=== PATIENT | female | born 1950 | race African-American/Black ===

== ENCOUNTER → 2017-01-22 | Outpatient (CLI) | payer MEDICARE, OTHER ==
[2015-04-30 10:46] VITALS: BP 121/73
[~2017-01-22] MED LIST: CYAN10005 PO; CYCL10TA2 PO; FERR325T20 PO; HYDR-971 PO; HYDR25TA9 PO; LISI-334 PO; METF10002 PO; POTA20TA12 PO
--- NOTE | 2017-01-22 09:02 | KCIC ---
PROCEDURE MRI lumbar spine without contrast. HISTORY Low back pain, pain since September 2016, bilateral radiculopathy TECHNIQUE Multiplanar, multi sequential, non contrast MR imaging was performed of the lumbar spine. COMPARISON None FINDINGS Lumbar vertebral body stature and AP alignment are maintained. Conus terminates normally at L1. There is no significant marrow edema. Intervertebral disc spaces are overall preserved, mild disc desiccation L2-3. There is posterior annular tear L2-3. L2-3: There is negligible disc osteophyte complex and bulge. Spinal canal and neural foramina are adequate. There is mild facet hypertrophic change and buckling of the ligamentum flavum. L3-4: There is mild buckling of the ligamentum flavum and facet hypertrophic change. There is negligible disc osteophyte complex. Neural foramina and spinal canal are adequate. L4-5: There is mild to moderate facet degenerative change and mild buckling of the ligamentum flavum. Spinal canal and neural foramina are adequate. L5-S1: Spinal canal and neural foramina are adequate. There is moderate facet hypertrophic change. IMPRESSION 1. There is multilevel lumbar facet degenerative change. There is no significant lumbar spinal stenosis or neural foramina compromise. There is very minimal spondylosis. There is mild disc desiccation L2-3. Electronically signed by: Tanvir Franco MD (Jan 22, 2017 09:01:18)
== END | disposition home or self-care (01) ==
LOC: KCIC MRI 08:23
PROVIDERS: ATTEND Neurological Surgery
DX: M54.16 Radiculopathy, lumbar region (principal); M25.78 Osteophyte, vertebrae; M47.896 Other spondylosis, lumbar region; M51.36 Other intervertebral disc degeneration, lumbar region
CPT/HCPCS: 72148

== ENCOUNTER → 2017-02-04 | Outpatient (CLI) | payer OTHER, MEDICARE ==
[2015-04-30 10:46] VITALS: BP 121/73
[~2017-02-04] MED LIST changes: +IOHEXOL 180 MG/ML 10 ML VIAL. ONE; +methylPREDNISolone ACETATE 40 MG/ML VIAL. ONE; +methylPREDNISolone ACETATE 80 MG/ML VIAL. ONE
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
== END | disposition home or self-care (01) ==
LOC: PNCL 08:34
PROVIDERS: ATTEND Anesthesiology
DX: M51.16 Intervertebral disc disorders with radiculopathy, lumbar region (principal); M47.26 Other spondylosis with radiculopathy, lumbar region; M19.90 Unspecified osteoarthritis, unspecified site; I10 Essential (primary) hypertension; E11.9 Type 2 diabetes mellitus without complications; D64.9 Anemia, unspecified; Z90.49 Acquired absence of other specified parts of digestive tract
CPT/HCPCS: 62323; J1030; J1040

== ENCOUNTER → 2017-02-18 | Outpatient (CLI) | payer MEDICARE, OTHER ==
[2015-04-30 10:46] VITALS: BP 121/73
[~2017-02-18] MED LIST changes: -IOHEXOL 180 MG/ML 10 ML VIAL. ONE; +METF500T4 PO; +Magnesium Chloride PO; +PANT40TA5 PO; -methylPREDNISolone ACETATE 40 MG/ML VIAL. ONE; -methylPREDNISolone ACETATE 80 MG/ML VIAL. ONE
--- NOTE | 2017-02-18 14:48 | PAIN ---
DATE OF SERVICE: 02/18/2017 DIAGNOSES: Lumbar radiculopathy with lumbar degenerative disk disease and lumbar spondylosis. HISTORY OF PRESENT ILLNESS: The patient is a 66-year-old female who returns for followup status post lumbar epidural steroid injection x 1. The patient reports about 50% improvement, doing much better in the low back and right greater than left lower extremity pain. There is still some pain in the right hip and leg which is a crampy pain but doing much better. The patient reports she has been increasing her activities with greater ease and comfort and has been doing generally better. The patient does have a significant complaint today, however, of some chest pain which is a dull and heavy feeling radiating into her left neck, left jaw, and into her left arm with heaviness in her left arm as well. It has been going on for about 4 days. The patient reports she is not short of breath. She is not having any other symptoms or complaints. No diaphoresis or sweating but is having significant to heavy pain. She is having it on her visit today. The patient reports her back pain, however, is about a 4 on a scale of 10. It is as high as 6 with activity, standing and walking, doing much better, sleeping better at night. Main complaint, however, is the chest pain that she is having currently. PHYSICAL EXAMINATION: VITAL SIGNS: The patient's blood pressure is 141/79, pulse 98, respirations are 18, and temperature 98.1 degrees Fahrenheit. Height is 5 feet 8 inches, weight is 218 pounds. GENERAL: The patient is awake, alert, oriented, appropriate, very pleasant demeanor. HEENT: Head shows normocephalic, atraumatic. Extraocular movements are intact and symmetrical. Oral cavity, mucous membranes are moist and pink. Dentition is intact. NECK: Shows anterior throat supple without palpable lymphadenopathy noted. Swallow reflex is symmetrical. Neck shows full rotational motion of the cervical spine without difficulty. CHEST: Shows normal with inspection. Breath sounds are clear to auscultation bilaterally. HEART: Shows S1 and S2 clear. No murmurs are auscultated. ABDOMEN: Soft, nontender, and nondistended. BACK: The patient's back shows spine grossly in midline. Lumbar paraspinous muscle shows some mild tenderness with palpation in the lumbar distribution without radiation and only diffusely in the paraspinous musculature, mostly in the lower lumbar distribution. EXTREMITIES: Lower extremities show deep tendon reflexes at 1+/4 in the patellar tendons. Motor exam is strong with 5 out of 5 dorsiflexion and extension and equal bilaterally. PLAN: Options were discussed with the patient. At this time in light of the patient's acute heavy chest pain and radiating to the left arm, we will have her transferred to the Emergency Department immediately for evaluation and EKG. I spoke with the patient's primary care physician, Dr. Denny, also, and she agrees to have her sent to the Emergency Department to have her cardiac system evaluated. The patient will follow up after this is evaluated and it is safe to proceed. We will have her return for a second lumbar epidural steroid injection once her cardiac evaluation is completed and is available. MARKUS ENRIQUEZ MD DR: RELL/margo JOB#: [id number] / [id number]
== END | disposition home or self-care (01) ==
LOC: PNCL 08:54
PROVIDERS: ATTEND Anesthesiology
DX: M51.16 Intervertebral disc disorders with radiculopathy, lumbar region (principal); M47.896 Other spondylosis, lumbar region
CPT/HCPCS: 99212

== ENCOUNTER → 2017-02-23 | Outpatient (CLI) | payer MEDICARE, OTHER ==
[2017-02-19 15:15] VITALS: BP 109/70
[~2017-02-23] MED LIST changes: +IOHEXOL 180 MG/ML 10 ML VIAL. ONE; +methylPREDNISolone ACETATE 40 MG/ML VIAL. ONE; +methylPREDNISolone ACETATE 80 MG/ML VIAL. ONE
--- NOTE | 2017-02-23 10:32 | PAIN ---
DATE OF SERVICE: 02/23/2017 PROGRESS NOTE FOR PAIN CLINIC DIAGNOSES: Lumbar radiculopathy with lumbar degenerative disk disease, lumbar spondylosis. HISTORY OF PRESENT ILLNESS: The patient is a 66-year-old female, who returns for followup status post lumbar epidural steroid injection x 1. The patient is about 50% better with the last injection on her last visit; however 02/18/2017. She has had some chest pain and we had sent her to the ER. She was admitted overnight for observation with a normal EKG, normal echo and the pain resolved after a few days after leaving the hospital. The patient reports she is doing much better. She is scheduled for esophageal dilatation; however, in the near future with her newspaper photojournalist as this may have been the source of pain, but cardiac symptoms for ruled out and she is very happy about this. The patient reports still significant pain in the low back, worse on the left than the right, but across the low back, bilaterally is aching, sharp and dull, constant in activity, worse with standing and walking, anywhere from 5 to 7 on a scale of 10. Again, worse with activity. The patient reports no new motor or sensory deficits, no new bowel or bladder incontinence or other complaints. PHYSICAL EXAMINATION: VITAL SIGNS: The patient's blood pressure is 122/61, pulse 76, respirations are 20, temperature 98.2 degrees Fahrenheit. Weight is 217 pounds. GENERAL: The patient is awake, alert, oriented, appropriate, very pleasant demeanor. HEENT: Head shows normocephalic, atraumatic. Extraocular movements are intact and symmetrical. Oral cavity shows mucous membranes moist and pink. Dentition is intact. NECK: Shows anterior throat supple without palpable lymphadenopathy noted. Swallow reflex is symmetrical. CHEST: Shows normal on inspection. Breath sounds clear to auscultation bilaterally. HEART: Shows S1 and S2 clear. ABDOMEN: Soft, nontender, nondistended. No palpable organomegaly. No rebound or guarding demonstrated. BACK: Shows spine grossly midline. Lumbar paraspinous musculature is symmetrical in appearance with palpation shows moderately tender, but only diffusely in the lower lumbar distribution bilaterally without radiation. LOWER EXTREMITIES: Showed deep tendon reflexes 1+ in the patellar and tendo calcaneus tendons. Motor exam is strong with 5/5 dorsiflexion, extension, quadriceps and hamstring flexion. Options were discussed with the patient and the patient's old chart was reviewed as her current medication regimen updated. Current review of systems updated today as well. We will proceed with a second lumbar epidural steroid injection today with fluoroscopic guidance. Risks were again discussed including but not limited to bleeding, infection, possibility of epidural hematoma, subsequent neurologic compromise, dural puncture, headaches, spinal cord and/or nerve damage, side effects of steroid medication and poor results regarding pain control. The patient understands and wishes to proceed. The patient will return to the clinic in approximately 2 weeks for followup. She is counseled on return appointment, activity level, and side effects to be aware of. DIAGNOSES: Lumbar radiculopathy with lumbar degenerative disk disease, lumbar spondylosis. PROCEDURE: Lumbar epidural steroid injection in translaminar approach at L4-L5 level using C-arm fluoroscopic guidance under sterile prep and drape using local anesthetic. MEDICATIONS INJECTED: Depo-Medrol 120 mg plus 10 mL of preservative-free normal saline and 2 mL Isovue for contrast. CONDITION AT DISCHARGE: Stable. The patient tolerated procedure well, had no complications. MARKUS ENRIQUEZ MD DR: RELL/margo JOB#: [id number] / [id number]
== END | disposition home or self-care (01) ==
LOC: PNCL 08:44
PROVIDERS: ATTEND Anesthesiology
DX: M51.16 Intervertebral disc disorders with radiculopathy, lumbar region (principal); M47.26 Other spondylosis with radiculopathy, lumbar region; I10 Essential (primary) hypertension; E11.9 Type 2 diabetes mellitus without complications; D64.9 Anemia, unspecified; Z90.49 Acquired absence of other specified parts of digestive tract
CPT/HCPCS: 62323; J1030; J1040

== ENCOUNTER → 2017-03-11 | Outpatient (CLI) | payer MEDICARE, OTHER ==
[2017-02-19 15:15] VITALS: BP 109/70
[~2017-03-11] MED LIST changes: +METF-620 PO; -METF10002 PO
--- NOTE | 2017-03-11 13:01 | PAIN ---
DATE OF SERVICE: 03/11/2017 PROGRESS NOTE FOR PAIN CLINIC DIAGNOSES: Lumbar radiculopathy with lumbar spondylosis and lumbar degenerative disk disease. HISTORY OF PRESENT ILLNESS: A 66-year-old female, who returns for followup status post lumbar epidural steroid injection x 2. The patient reports about 50% improvement overall in the low back and the bilateral lower extremities. The patient reports still doing better increasing activity with greater ease and comfort, but still has some pain in the back and in the legs as aching, sharp, on and off, but not constant. The patient reports anywhere from 2 to 5 on a scale of 10 at its worst, worse with activity, standing, walking and changing positions. The patient reports she is sleeping well through the night, is not awaking her, sleep at about 7 hours a night or so, not have any new motor or sensory deficits, no new bowel or bladder incontinence or other complaints. PHYSICAL EXAMINATION: VITAL SIGNS: The patient's blood pressure is 133/93, pulse 75, respirations are 20, temperature is 98.5 degrees Fahrenheit, weight is 219 pounds. GENERAL: The patient is awake, alert, oriented, appropriate, very pleasant demeanor. HEENT: Head shows normocephalic, atraumatic. Extraocular movements are intact, symmetrical. Oral cavity shows mucous membranes moist and pink. Dentition is intact. NECK: Shows anterior throat supple without palpable lymphadenopathy noted. Swallow reflex is symmetrical. CHEST: Shows normal on inspection. Breath sounds are clear to auscultation bilaterally. HEART: Shows S1 and S2 clear. ABDOMEN: Soft, nontender, nondistended. No palpable organomegaly noted. No rebound or guarding demonstrated. BACK: Shows spine grossly midline. Normal appearing thoracic kyphosis and lumbar lordotic curvature is mildly flattened with inspection and it shows symmetrical. Lumbar paraspinous musculature with palpation shows some moderate tenderness with palpation, but only diffusely in the middle and lower distribution of paraspinous muscles without radiation. No tenderness over the sacrum or sacroiliac regions. The patient shows good rotation and motion of lumbar spine, both laterally as well as extension and flexion without difficulty or pain reported. EXTREMITIES: Lower extremities show deep tendon reflexes at 1+ in the patellar tendons. Motor exam is strong with 5/5 dorsiflexion, extension, quadriceps and hamstring flexion and symmetrical. Options were discussed with the patient and the patient's old chart was reviewed as her current medication regimen updated. Current review of systems updated today as well. We will proceed with a third in the series lumbar epidural steroid injection today with fluoroscopic guidance. Risks were discussed including, but not limited to bleeding, infection, possibility of epidural hematoma, subsequent neurological compromise, dural puncture headaches, spinal cord and/or nerve damage, side effects to steroid medications and poor results regarding pain control. The patient understands and wished to proceed. The patient will return to the clinic in approximately 2 weeks for followup. She was counseled on return appointment, activity levels, and side effects to be aware of. DIAGNOSES: Lumbar radiculopathy with lumbar degenerative disk disease, lumbar spondylosis. PROCEDURES: Lumbar epidural steroid injection in translaminar approach at L4-L5 level using C-arm fluoroscopic guidance under sterile prep and drape using local anesthetic. MEDICATIONS INJECTED: Depo-Medrol 120 mg plus 10 mL preservative-free normal saline and 2 mL of Isovue for contrast. CONDITION AT DISCHARGE: Stable. The patient tolerated the procedure well, had no complications. MARKUS ENRIQUEZ MD DR: RELL/margo JOB#: [id number] / [id number]
== END | disposition home or self-care (01) ==
LOC: PNCL 08:43
PROVIDERS: ATTEND Anesthesiology
DX: M51.16 Intervertebral disc disorders with radiculopathy, lumbar region (principal); M47.26 Other spondylosis with radiculopathy, lumbar region; E11.9 Type 2 diabetes mellitus without complications; I10 Essential (primary) hypertension; D64.9 Anemia, unspecified; Z90.49 Acquired absence of other specified parts of digestive tract
CPT/HCPCS: 62323; J1030; J1040

== ENCOUNTER 2017-06-25 09:48 | Emergency (ER) | payer MEDICARE, OTHER ==
[~2017-06-25] VITALS: Ht 170.2 cm; Wt 98.9 kg
[~2017-06-25 09:48] MED LIST changes: -IOHEXOL 180 MG/ML 10 ML VIAL. ONE; -methylPREDNISolone ACETATE 40 MG/ML VIAL. ONE; -methylPREDNISolone ACETATE 80 MG/ML VIAL. ONE
[2017-06-25] MEDS ORDERED: HYDROcodone/APAP 5/325MG 1 TAB TABLET PO ONE (10:30)
--- NOTE | 2017-06-25 11:01 | RAD ---
Right ankle, 3 views, 06/25/2017: History: Fall downstairs, pain No ankle fracture or dislocation is identified. There is mild subcutaneous edema. IMPRESSION: No acute bony abnormality is detected. Right foot, 3 views, 06/25/2017: There is a mild Branden valgus deformity with mild degenerative change at the first MTP joint. There are small elongated calcific densities along the dorsal aspects of the navicular bone and distal talus compatible with avulsion fractures. A small bony density along the lateral aspect of the talonavicular articulation is compatible with an additional avulsion fracture fragment, although this may be old. No other fracture or dislocation is identified. There is diffuse soft tissue swelling. IMPRESSION: Small cortical avulsion fractures arising from the distal aspect of the talus and dorsal aspect of the navicular bone. Right tibia and fibula, 2 views, 06/25/2017: No acute fracture is identified. There is moderate subcutaneous edema distally.
--- NOTE | 2017-06-25 11:05 | RAD ---
Portable chest, 06/25/2017: History: Fall, pain No pelvic fracture is identified. The hip joints are fairly well-maintained with only mild marginal spurring. There is an irregular sclerotic lesion in the medial aspect of the left femoral head. This was also evident on an old CT study from 04/29/2015 and appears unchanged. This may represent a benign chondroid lesion or an old focus of avascular necrosis. A linear radiopacity compatible with a needle fragment is projected over the soft tissues in the right buttock region. This foreign body was also evident on the previous CT study. IMPRESSION: 1. Stable sclerotic lesion in the left femoral head. 2. No acute bony abnormality is detected.
[2017-06-25 11:09] VITALS: BP 147/89
--- NOTE | 2017-06-25 11:09 | PHYS DOC ---
Past Medical History Past Medical History: Anemia, Diabetes-Type II, Hypertension, Other Additional Past Medical Histor: chronic pain Past Surgical History: Cholecystectomy Alcohol Use: None Drug Use: None Adult General Chief Complaint Chief Complaint: MECHANICAL FALL HPI HPI Patient is a 67 year old female presenting to the emergency department for evaluation of right leg pain status post fall. He says that she was walking down the stairs and her foot got caught on the stairs and her right leg went backwards on the stairs. She is mostly complaining of pain in her right ankle and foot and she is able to ambulate but it is painful to do so. She denies any head neck chest abdomen or back pain from this fall. No loss of consciousness. She said that she felt dizzy briefly after the fall but that has since resolved. Review of Systems Review of Systems Constitutional: Denies fever or chills [] Respiratory: Denies cough or shortness of breath [] Cardiovascular: No additional information not addressed in HPI [] GI: Denies abdominal pain, nausea, vomiting, bloody stools or diarrhea [] Musculoskeletal: Denies back pain. + joint pain [] Integument: Denies rash or skin lesions [] Neurologic: Denies headache, focal weakness or sensory changes [] Current Medications Current Medications Current Medications Medications (Trade) Dose Ordered Sig/Tavon Start Time Stop Time Status Last Admin Dose Admin Acetaminophen/ Hydrocodone Bitart (Lortab 5/325) 2 tab 1X ONCE 06/25/17 10:30 06/25/17 10:31 DC 06/25/17 10:41 2 TAB Allergies Allergies Allergies Coded Allergies Type Severity Reaction Last Updated Verified Sulfa (Sulfonamide Antibiotics) Allergy Intermediate 02/19/17 Yes Physical Exam Physical Exam Constitutional: Well developed, well nourished, no acute distress, non-toxic appearance. [] HENT: Normocephalic, atraumatic, bilateral external ears normal, oropharynx moist, no oral exudates, nose normal. [] Neck: Normal range of motion, no tenderness, supple, no stridor. [] Cardiovascular:Heart rate regular rhythm, no murmur [] Lungs & Thorax: Bilateral breath sounds clear to auscultation [] Abdomen: Bowel sounds normal, soft, no tenderness, no masses, no pulsatile masses. [] Skin: Warm, dry, no erythema, no rash. [] Back: No tenderness, no CVA tenderness. [] Extremities: Right hip slightly painful to palpation in addition to her right tib-fib. Right lateral malleolus is slightly swollen and the top and lateral parts of her foot are painful as well. Neurologic: Alert and oriented X 3, normal motor function, normal sensory function, no focal deficits noted. [] Current Patient Data Vital Signs Vital Signs Date Time Temp Pulse Resp B/P (MAP) Pulse Ox O2 Delivery O2 Flow Rate FiO2 06/25/17 10:15 97.8 74 16 148/87 (107) 98 Room Air 97.8 EKG EKG [] Radiology/Procedures Radiology/Procedures Right ankle, 3 views, 06/25/2017: History: Fall downstairs, pain No ankle fracture or dislocation is identified. There is mild subcutaneous edema. IMPRESSION: No acute bony abnormality is detected. Right foot, 3 views, 06/25/2017: There is a mild Branden valgus deformity with mild degenerative change at the first MTP joint. There are small elongated calcific densities along the dorsal aspects of the navicular bone and distal talus compatible with avulsion fractures. A small bony density along the lateral aspect of the talonavicular articulation is compatible with an additional avulsion fracture fragment, although this may be old. No other fracture or dislocation is identified. There is diffuse soft tissue swelling. IMPRESSION: Small cortical avulsion fractures arising from the distal aspect of the talus and dorsal aspect of the navicular bone. Right tibia and fibula, 2 views, 06/25/2017: No acute fracture is identified. There is moderate subcutaneous edema distally. IMPRESSION: No acute bony abnormality is detected. DICTATED and SIGNED BY: REBECCA MCKEON MD DATE: 06/25/17 1051 Portable chest, 06/25/2017: History: Fall, pain No pelvic fracture is identified. The hip joints are fairly well-maintained with only mild marginal spurring. There is an irregular sclerotic lesion in the medial aspect of the left femoral head. This was also evident on an old CT study from 04/29/2015 and appears unchanged. This may represent a benign chondroid lesion or an old focus of avascular necrosis. A linear radiopacity compatible with a needle fragment is projected over the soft tissues in the right buttock region. This foreign body was also evident on the previous CT study. IMPRESSION: 1. Stable sclerotic lesion in the left femoral head. 2. No acute bony abnormality is detected. DICTATED and SIGNED BY: REBECCA MCKEON MD DATE: 06/25/17 1058 Course & Med Decision Making Course & Med Decision Making Patient has an avulsion fracture on her foot that should be nonoperative. I'll put her in a padded shoe and have her follow with orthopedics and come back to the ER sooner with any new worsening pain weakness or other general concerns. Patient aware and agreeable with plan and verbalized understanding of the above instructions. Dragon Disclaimer Dragon Disclaimer This electronic medical record was generated, in whole or in part, using a voice recognition dictation system. Departure Departure Impression: Primary Impression: Avulsion fracture of navicular bone of foot Disposition: HOME, SELF-CARE Condition: GOOD Referrals: PRIYA LISA MD (PCP) ERROL SOLORIO II, MD Patient Instructions: Foot Fracture-Brief Additional Instructions: TAKE 400MG OF IBUPROFEN EVERY 6 HOURS FOR PAIN AND THE NORCO FOR BREAKTHROUGH PAIN. FOLLOW WITH THE ORTHO DOCTOR AND COME BACK TO THE ED WITH ANY NEW OR WORSENING SYMPTOMS. THANK YOU! Scripts Hydrocodone/Apap 5-325 (NORCO 5-325 TABLET) 1 Each Tablet 1 TAB PO PRN Q6HRS Y for PAIN, #14 TAB 0 Refills Prov: HILARIO DAVIS DO 06/25/17 Problem Qualifiers Primary Impression: Avulsion fracture of navicular bone of foot Encounter type: initial encounter Fracture type: closed Laterality: right Qualified Codes: S92.251A - Displaced fracture of navicular [scaphoid] of right foot, initial encounter for closed fracture HILARIO DAVIS DO Jun 25, 2017 11:09
[2017-06-25] MEDS ORDERED: HYDR-971 PO (11:27)
--- NOTE | 2017-06-26 06:05 | EKG ---
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
== END 2017-06-25 12:02 | disposition home or self-care (01) ==
LOC: ER 09:48
DX: S92.251A Displaced fracture of navicular [scaphoid] of right foot, initial encounter for closed fracture (principal); E11.9 Type 2 diabetes mellitus without complications; I10 Essential (primary) hypertension; G89.29 Other chronic pain; Z90.49 Acquired absence of other specified parts of digestive tract; Z88.2 Allergy status to sulfonamides; W10.9XXA Fall (on) (from) unspecified stairs and steps, initial encounter; Y93.01 Activity, walking, marching and hiking; Y92.89 Other specified places as the place of occurrence of the external cause; Y99.8 Other external cause status
CPT/HCPCS: 72170; 73590; 73610; 73630; 93005; 99284-25

== ENCOUNTER → 2017-10-07 | Outpatient (CLI) | payer MEDICARE, OTHER ==
--- NOTE | 2017-10-07 15:47 | KCIC ---
MRI right midfoot without contrast dated 10/07/2017. No comparison available. CLINICAL INDICATION: Right foot pain. History of prior fracture TECHNIQUE: Routine multiplanar multisequence MR imaging of right midfoot performed. No contrast administered. FINDINGS: There is focal bone marrow edema within the cuboid bone and anterior calcaneus, marginating the calcaneocuboid joint. No discrete fracture line. Minimal T2 hyperintense signal within the head of the second and first metatarsal. No periostitis or bone destruction. Marrow signal is otherwise homogeneous. Mild hypertrophic change of the joints of the midfoot. Small plantar spur. Plantar fascia is grossly intact. Flexor and extensor tendons are grossly intact. Ankle ligaments are grossly intact. Lisfranc ligament is intact. There is mild edema within the lateral subcutaneous tissues. Edema also extends along the distal peroneus longus and peroneus brevis tendons. No focal fluid collection. IMPRESSION: 1. Focal bone marrow edema within the cuboid bone and anterior calcaneus, nonspecific. This could be related to bone contusion, stress reaction/healing stress fracture or healing posttraumatic fracture. 2. Mild nonspecific edema within the lateral subcutaneous tissues. There is also suspected mild tendinosis of the peroneus longus and peroneus brevis. 3. Additional areas of mild nonspecific bone marrow edema involving the first and second metatarsal head. Electronically signed by: Javier Franco MD (10/07/2017 3:24 PM) [id number]
== END | disposition home or self-care (01) ==
LOC: KCIC MRI 14:16
PROVIDERS: ATTEND Nurse Practitioner Gerontology
DX: M79.671 Pain in right foot (principal); R60.9 Edema, unspecified
CPT/HCPCS: 73718

== ENCOUNTER → 2019-07-06 | Day surgery (SDC) | payer MEDICARE, OTHER ==
[~2019-07-06] MED LIST changes: +CYAN-25 PO; -CYAN10005 PO; +HYDR-2145 PO; +HYDR-3164 PO; -HYDR-971 PO; -HYDR25TA9 PO; +IV RINGERS,LACTATED 1000ML 1,000 ML IV SCH; +LIDOCAINE 2% PF 5 ML VIAL. ONE; -METF-620 PO; +METF10007 PO; +METF500T16 PO; -METF500T4 PO; -PANT40TA5 PO; +PANT40TA77 PO; +PROPOFOL 20 ML IV ONE
[2019-07-06 08:42] VITALS: BP 154/78
--- NOTE | 2019-07-06 12:28 | HP ---
ADMIT DATE: 07/06/2019 REFERRING PHYSICIAN: Cathy Denny MD REASON FOR EVALUATION: Dysphagia. HISTORY OF PRESENT ILLNESS: A 69-year-old female with past medical history, which is significant for diabetes, hypertension, gouty arthritis, recent diverticulitis, status post cholecystectomy and tubal ligation, seen for recurrent dysphagia for solids and pills in the subcervical location. There has been minimal heartburn. No change in weight or appetite. No bleeding. Previous dilatation 5 years ago did help and she is here today for repeat dilatation. PAST MEDICAL HISTORY: Diabetes, hypertension, gouty arthritis. ALLERGIES: SULFA. MEDICATIONS: Include vitamin B12, ferrous sulfate, hydrochlorothiazide, lisinopril, metformin, and potassium chloride. FAMILY AND SOCIAL HISTORY: She is adopted. She is a nonsmoker and nondrinker at this time. REVIEW OF SYSTEMS: As per records. PHYSICAL EXAMINATION: GENERAL: Reveals a well-developed, well-nourished -[place] female, who is alert and cooperative, in no acute distress. VITAL SIGNS: Temperature 97.8, pulse 70, and respirations 20. HEENT: Normocephalic, atraumatic head. Pupils and extraocular muscles are not tested. Sclerae anicteric. NECK: Supple. LUNGS: Clear. CARDIOVASCULAR: Reveals an S1, S2 without S3, S4 or appreciable murmur. ABDOMEN: Reveals a soft abdomen, normal bowel sounds, without appreciable hepatosplenomegaly, with a right upper quadrant cholecystectomy incision. EXTREMITIES: Reveals no cyanosis, clubbing or edema. IMPRESSION AND PLAN: Dysphagia, most likely secondary to Schatzki ring, presbyesophagus, eosinophilic esophagitis, malignancy, achalasia, Canela's certainly a differential. We will recommend upper endoscopy with possible biopsy and dilatation. Risks and benefits of procedure including risk of hemorrhage and perforation were discussed. The patient is willing to proceed at this time. FALGUNI FIGUEROA MD DR: RUPAL/margo JOB#: [id number] / [id number]
== END ==
LOC: ENDOS 06:50
PROVIDERS: ATTEND Internal Medicine Gastroenterology
DX: K22.2 Esophageal obstruction (principal); I10 Essential (primary) hypertension; E11.9 Type 2 diabetes mellitus without complications; M10.9 Gout, unspecified; Z79.84 Long term (current) use of oral hypoglycemic drugs; Z88.1 Allergy status to other antibiotic agents
CPT/HCPCS: 43235; 43450; J2001; J2704

== ENCOUNTER → 2019-09-15 | Outpatient (CLI) | payer MEDICARE, OTHER ==
[2019-07-06 08:42] VITALS: BP 154/78
[~2019-09-15] MED LIST changes: -IV RINGERS,LACTATED 1000ML 1,000 ML IV SCH; -LIDOCAINE 2% PF 5 ML VIAL. ONE; -PROPOFOL 20 ML IV ONE
--- NOTE | 2019-09-15 15:24 | RAD ---
EXAM: CHEST 2 VIEWS. HISTORY: Cough. COMPARISON: None. FINDINGS: Frontal and lateral views of the chest are obtained. There are no confluent infiltrates. There is no pneumothorax or pleural effusion. The heart is not enlarged. The right hemidiaphragm is mildly elevated. IMPRESSION: 1. No confluent infiltrates. Electronically signed by: Ann Marie Mora MD (09/15/2019 3:21 PM) [facility]
== END | disposition home or self-care (01) ==
LOC: RAD 13:52
PROVIDERS: ATTEND Family Medicine
DX: R05 Cough (principal)
CPT/HCPCS: 71046

== ENCOUNTER → 2021-04-12 | Outpatient (CLI) | payer MEDICARE, OTHER ==
[2019-07-06 08:42] VITALS: BP 154/78
[~2021-04-12] MED LIST changes: -LISI-334 PO; +LISI20TA18 PO
--- NOTE | 2021-04-12 10:37 | RAD ---
MRI STUDY OF THE LEFT KNEE WITH CONTRAST Clinical indications: Chronic anterior left knee pain. No known injury. TECHNIQUE: Noncontrast MRI sequences of the left knee were performed in all 3 planes. COMPARISON: Radiographic study of the left knee dated March 20, 2021. FINDINGS: The anterior and posterior cruciate ligaments are intact. The quadriceps and patellar tendo ns are intact. However, there is increased signal of the superior aspect of the patellar tendon at th e attachment to the inferior pole of the patella along with a traction spur. This is consistent with chronic tendinosis. There is mild adjacent soft tissue edema but no prepatellar bursitis is seen. The re is mild associated stress reaction bone marrow edema of the inferior pole of the patella. In addit ion, there is increased signal involving the quadriceps tendon at the insertion to the superior pole of the patella in association with a traction spur. This is consistent with tendinosis. No stress edgar ction bone marrow edema of the superior pole of the patella is seen however. No fracture or marrow in filtrative process is seen otherwise. No articular surface tear of the medial or lateral meniscus is seen. The medial collateral ligament is intact and no meniscocapsular separation is seen. The lateral collateral ligament complex and iliotibial band and popliteus tendon are intact. No posterior latera l corner injury is seen. The patella is normally aligned. There is mild chondromalacia of the lateral patellar facet with signal abnormality and mild swelling of the articular cartilage but no articular cartilage defect is seen. The trochlear articular cartilage is unremarkable. The medial and lateral retinacular ligaments are intact. Nondistended Mcmillan's cyst is seen. No abnormal joint effusion is se en. No loose body is evident. No muscle edema is seen. IMPRESSION: No meniscal or ligament tear is seen. Chronic tendinosis of the patellar tendon at the attachment to the inferior pole of the patella with a traction spur and stress reaction bone marrow edema. Chronic quadriceps tendinosis at the attachmen t to the superior pole of the patella with a traction spur. No prepatellar bursitis is seen. Mild chondromalacia patellae involving the lateral patellar facet without articular cartilage defect. Small nondistended Mcmillan's cyst. Electronically signed by: Virgil Sidhu MD (04/12/2021 10:34 AM) [id number]
== END ==
LOC: MRI 07:36
PROVIDERS: ATTEND Orthopaedic Surgery
DX: M22.42 Chondromalacia patellae, left knee (principal); M71.22 Synovial cyst of popliteal space [Baker], left knee
CPT/HCPCS: 73721